=== PATIENT | female | born 1960 | race Caucasian/White ===

== ENCOUNTER 2016-06-02 12:54 | Inpatient (IN) | payer BC ==
[~2016-06-02] VITALS: Ht 170.2 cm; Wt 90.7 kg
[2016-06-02 13:01] VITALS: BP_SYST 120
[2016-06-02] MEDS ORDERED: MAGNESIUM SULFATE 1 GM in NS 100 ML IV ONE (13:15)
[2016-06-02] MEDS ORDERED: ALBUTEROL SULFATE 0.083% 2.5 MG/3 ML VIAL.NEB INH ONE (13:15)
[2016-06-02] MEDS ORDERED: methylPREDNISolone SOD SUCC/PF 62.5 MG/ML VIAL IVP ONE (13:15)
[2016-06-02] MEDS ORDERED: IPRATROPIUM BROM 0.5 MG/2.5 ML VIAL.NEB (ATROVENT) INH ONE (13:15)
[2016-06-02 13:31] LABS: BASOPHILS % (AUTO) 0.4 % (0.0-2.0); EOSINOPHILS # (AUTO) 0.1 K/uL (0.0-0.4); EOSINOPHILS % (AUTO) 1.3 % (0.0-4.0); HEMATOCRIT 41.7 % (36-48); HEMOGLOBIN 14.1 g/dL (12.0-16.0); LYMPHOCYTES # (AUTO) 1.7 K/uL (1.0-5.5); LYMPHOCYTES % (AUTO) 19.7 % (20.5-51.5); MEAN CORPUSCULAR HEMOGLOBIN 30 pg (27-31); MEAN CORPUSCULAR HGB CONC 34 % (32-36); MEAN CORPUSCULAR VOLUME 88 fL (79.0-98.0); MONOCYTES # (AUTO) 0.5 K/uL (0.0-1.0); MONOCYTES % (AUTO) 6.5 % (1.7-9.3); NEUTROPHILS # (AUTO) 6.2 K/uL (1.8-7.7); NEUTROPHILS % (AUTO) 72.1 % (40.0-70.0); PLATELET COUNT (AUTO) 319 K/uL (130-430); RED BLOOD CELL COUNT(AUTO) 4.76 MIL/uL (4.2-6.2); RED CELL DISTRIBUTION WIDTH 14.1 % (9.0-15.0); WHITE BLOOD COUNT (AUTO) 8.5 K/uL (4.8-10.8)
[2016-06-02 13:35] LABS: CALCIUM 9.1 mg/dL (8.4-11.0); CREATININE 1.11 mg/dL (0.55-1.30); POTASSIUM 3.5 mmol/L (3.5-5.1)
[2016-06-02 13:39] LABS: ALBUMIN 3.9 g/dL (3.4-4.8); TOTAL BILIRUBIN 0.4 mg/dL (0.0-1.0)
[2016-06-02] MEDS ORDERED: KETOROLAC TROMETHAMINE 30 MG VIAL IVP ONE (14:15)
[2016-06-02] MEDS ORDERED: PROCHLORPERAZINE EDISYLATE 10 MG/2 ML VIAL IVP ONE (14:15)
[2016-06-02] MEDS ORDERED: IOHEXOL 350 mgI/mL, 150 ML INFUS..BTL IV ONE (15:22)
[2016-06-02] MEDS ORDERED: LISI-600 PO (16:53)
[2016-06-02] MEDS ORDERED: MONT10TA25 PO (17:00)
[2016-06-02] MEDS ORDERED: FLUT1DIS3 INH (17:00)
[2016-06-02] MEDS ORDERED: ASPI81TA2 PO (17:00)
[2016-06-02] MEDS ORDERED: DULO60CA41 PO (17:00)
[2016-06-02] MEDS ORDERED: TEMA30CA5 PO (17:00)
[2016-06-02] MEDS ORDERED: ALBU0.63 NEB (17:00)
[2016-06-02] MEDS ORDERED: ALBMDI INH (17:00)
[2016-06-02] MEDS ORDERED: PANT20TA2 PO (17:00)
[2016-06-02] MEDS ORDERED: HYDR25TA4 PO (17:00)
[2016-06-02] MEDS ORDERED: AZITHROMYCIN 500 MG in NS 250 ML IV ONE (17:30)
[2016-06-02] MEDS ORDERED: AZITHROMYCIN 500 MG/VIAL (ZITHROMAX) IV ONE (17:40)
[2016-06-02] MEDS: PANTOPRAZOLE SODIUM 40 MG TAB PO SCH (17:45)
[2016-06-02] MEDS ORDERED: DEXTROSE 50% JECT 50 ML DISP.SYRIN IVP PRN (17:45)
[2016-06-02] MEDS ORDERED: cefTRIAXone 1 GM in D5W 50 ML IV SCH (17:45)
[2016-06-02] MEDS ORDERED: IPRATROPIUM/ALBUTEROL SULFATE 3 ML AMPUL.NEB INH PRN (17:45)
[2016-06-02] MEDS ORDERED: AZITHROMYCIN 500 MG in NS 250 ML IV SCH (17:45)
[2016-06-02] MEDS ORDERED: MONTELUKAST 10 MG TABLET PO SCH (18:00)
[2016-06-02] MEDS: LR 1,000 ML IV SCH (18:54)
[2016-06-02] MEDS: MONTELUKAST 10 MG TABLET PO SCH (18:54)
[2016-06-02 19:00] VITALS: BP_SYST 106
[2016-06-02 20:00] VITALS: BP_SYST 106
[2016-06-02] MEDS: IPRATROPIUM/ALBUTEROL SULFATE 3 ML AMPUL.NEB INH SCH ×2 (20:37→23:33)
[2016-06-02] MEDS: guaiFENesin ER 600 MG TAB PO SCH (21:13)
[2016-06-02] MEDS: ENOXAPARIN SODIUM 40 MG/0.4 ML SYRINGE SUBCUT SCH (21:14)
[2016-06-02] MEDS: INSULIN REGULAR, HUMAN 100 UNITS/ML, 10 ML VIAL (novoLIN R) SUBCUT PRN (21:18)
[2016-06-02] MEDS: TEMAZEPAM 15 MG CAPSULE PO SCH (21:59)
[2016-06-02 23:19] VITALS: BP_SYST 110
[2016-06-03] VITALS (7 sets, daily range): BP systolic 109–144
[2016-06-03] MEDS ORDERED: PIPERACILLIN/TAZO 3.375/DEX-IS 50 ML IV SCH
[2016-06-03] MEDS: LR 1,000 ML IV SCH (06:15)
[2016-06-03] MEDS: INSULIN REGULAR, HUMAN 100 UNITS/ML, 10 ML VIAL (novoLIN R) SUBCUT PRN ×3 (06:25→20:56)
[2016-06-03 08:22] LABS: CHOLESTEROL 240 mg/dL (<200); HDL CHOLESTEROL 44 mg/dL (>55); LDL CHOLESTEROL 153 mg/dL (<100); TRIGLYCERIDES 277 mg/dL (30-150)
[2016-06-03] MEDS: NICOTINE 21 MG/24 HR PATCH.TD24 TD SCH (09:36)
[2016-06-03] MEDS: ASPIRIN 81 MG TAB.CHEW PO SCH (09:36)
[2016-06-03] MEDS: DULoxetine HCL 30 MG CAPSULE.DR (CYMBALTA) PO SCH (09:36)
[2016-06-03] MEDS: FLUTICASONE/VILANTEROL 1 EACH BLST.W.DEV INH SCH (09:36)
[2016-06-03] MEDS: guaiFENesin ER 600 MG TAB PO SCH ×2 (09:36→20:51)
[2016-06-03] MEDS: LISINOPRIL 20 MG TABLET PO SCH (09:37)
[2016-06-03] MEDS: LEVOFLOXACIN 500 MG TABLET PO SCH (09:37)
[2016-06-03] MEDS: PANTOPRAZOLE SODIUM 40 MG TAB PO SCH (09:37)
[2016-06-03] MEDS: HYDROCHLOROTHIAZIDE 25 MG TABLET (HCTZ) PO SCH (09:37)
[2016-06-03] MEDS: IPRATROPIUM/ALBUTEROL SULFATE 3 ML AMPUL.NEB INH SCH ×5 (11:28→23:22)
[2016-06-03] MEDS: MONTELUKAST 10 MG TABLET PO SCH (17:08)
[2016-06-03] MEDS: DIPHENHYDRAMINE INJ 50 MG/ML VIAL IVP PRN (20:29)
[2016-06-03] MEDS: ENOXAPARIN SODIUM 40 MG/0.4 ML SYRINGE SUBCUT SCH (20:52)
[2016-06-03] MEDS: TEMAZEPAM 15 MG CAPSULE PO SCH (22:12)
[2016-06-04] VITALS: BP_SYST 114
[2016-06-04] MEDS: IPRATROPIUM/ALBUTEROL SULFATE 3 ML AMPUL.NEB INH SCH ×6 (02:35→23:06)
[2016-06-04 04:00] VITALS: BP_SYST 104
[2016-06-04 08:00] VITALS: BP_SYST 128
[2016-06-04] MEDS: ASPIRIN 81 MG TAB.CHEW PO SCH (09:10)
[2016-06-04] MEDS: LEVOFLOXACIN 500 MG TABLET PO SCH (09:10)
[2016-06-04] MEDS: HYDROCHLOROTHIAZIDE 25 MG TABLET (HCTZ) PO SCH (09:11)
[2016-06-04] MEDS: PANTOPRAZOLE SODIUM 40 MG TAB PO SCH (09:11)
[2016-06-04] MEDS: guaiFENesin ER 600 MG TAB PO SCH ×2 (09:11→20:09)
[2016-06-04] MEDS: DULoxetine HCL 30 MG CAPSULE.DR (CYMBALTA) PO SCH (09:11)
[2016-06-04] MEDS: LISINOPRIL 20 MG TABLET PO SCH (09:12)
[2016-06-04] MEDS: FLUTICASONE/VILANTEROL 1 EACH BLST.W.DEV INH SCH (09:12)
[2016-06-04] MEDS: NICOTINE 21 MG/24 HR PATCH.TD24 TD SCH (09:12)
[2016-06-04] MEDS ORDERED: methylPREDNISolone SOD SUCC/PF 62.5 MG/ML VIAL IVP ONE (10:45)
[2016-06-04] MEDS ORDERED: POLYETHYLENE GLYCOL 3350, 17 GM/ POWD.PACK PO ONE (11:00)
[2016-06-04] MEDS: LEVOFLOXACIN 500 MG/D5W 100 ML IV SCH (11:48)
[2016-06-04 12:36] VITALS: BP_SYST 122
[2016-06-04] MEDS: methylPREDNISolone SOD SUCC/PF 62.5 MG/ML VIAL IVP SCH ×2 (14:17→22:45)
[2016-06-04 16:37] VITALS: BP_SYST 141
[2016-06-04] MEDS: MONTELUKAST 10 MG TABLET PO SCH (17:28)
[2016-06-04] MEDS: INSULIN REGULAR, HUMAN 100 UNITS/ML, 10 ML VIAL (novoLIN R) SUBCUT PRN ×2 (17:32→20:12)
[2016-06-04] MEDS: ENOXAPARIN SODIUM 40 MG/0.4 ML SYRINGE SUBCUT SCH (20:08)
[2016-06-04 20:13] VITALS: BP_SYST 132
[2016-06-04] MEDS: TEMAZEPAM 15 MG CAPSULE PO SCH (22:44)
[2016-06-05] VITALS: BP_SYST 136
[2016-06-05] MEDS: IPRATROPIUM/ALBUTEROL SULFATE 3 ML AMPUL.NEB INH SCH ×6 (03:25→23:00)
[2016-06-05 04:00] VITALS: BP_SYST 128
[2016-06-05] MEDS: methylPREDNISolone SOD SUCC/PF 62.5 MG/ML VIAL IVP SCH ×3 (06:20→21:18)
[2016-06-05] MEDS: INSULIN REGULAR, HUMAN 100 UNITS/ML, 10 ML VIAL (novoLIN R) SUBCUT PRN ×4 (06:40→22:21)
[2016-06-05 08:22] VITALS: BP_SYST 134
[2016-06-05] MEDS: ASPIRIN 81 MG TAB.CHEW PO SCH (08:47)
[2016-06-05] MEDS: FLUTICASONE/VILANTEROL 1 EACH BLST.W.DEV INH SCH (08:47)
[2016-06-05] MEDS: HYDROCHLOROTHIAZIDE 25 MG TABLET (HCTZ) PO SCH (08:48)
[2016-06-05] MEDS: guaiFENesin ER 600 MG TAB PO SCH ×2 (08:48→21:16)
[2016-06-05] MEDS: PANTOPRAZOLE SODIUM 40 MG TAB PO SCH (08:48)
[2016-06-05] MEDS: NICOTINE 21 MG/24 HR PATCH.TD24 TD SCH (08:48)
[2016-06-05] MEDS: DULoxetine HCL 30 MG CAPSULE.DR (CYMBALTA) PO SCH (08:48)
[2016-06-05] MEDS: LISINOPRIL 20 MG TABLET PO SCH (08:48)
[2016-06-05] MEDS: POLYETHYLENE GLYCOL 3350, 17 GM/ POWD.PACK PO SCH (08:49)
[2016-06-05 12:00] VITALS: BP_SYST 144
[2016-06-05] MEDS: LEVOFLOXACIN 500 MG/D5W 100 ML IV SCH (12:30)
[2016-06-05 16:00] VITALS: BP_SYST 140
[2016-06-05] MEDS: MONTELUKAST 10 MG TABLET PO SCH (17:11)
[2016-06-05] MEDS ORDERED: MORPHINE 2 MG/ML INJ. SYRINGE IVP PRN (18:00)
[2016-06-05] MEDS: ACETAMINOPHEN 500 MG TABLET PO PRN (18:40)
[2016-06-05] MEDS: DIPHENHYDRAMINE INJ 50 MG/ML VIAL IVP PRN (18:43)
[2016-06-05 19:15] VITALS: BP_SYST 145
[2016-06-05] MEDS: TEMAZEPAM 15 MG CAPSULE PO SCH (21:17)
[2016-06-05] MEDS: ENOXAPARIN SODIUM 40 MG/0.4 ML SYRINGE SUBCUT SCH (21:18)
[2016-06-06] VITALS (7 sets, daily range): BP systolic 124–144
[2016-06-06] MEDS: IPRATROPIUM/ALBUTEROL SULFATE 3 ML AMPUL.NEB INH SCH ×5 (02:54→20:39)
[2016-06-06] MEDS: methylPREDNISolone SOD SUCC/PF 62.5 MG/ML VIAL IVP SCH ×3 (05:47→21:34)
[2016-06-06 06:06] LABS: HEPATITIS A AB, IgM Negative (Negative); HEPATITIS B CORE AB, IgM Negative (Negative); HEPATITIS B SURFACE AG Negative (Negative)
[2016-06-06] MEDS: INSULIN REGULAR, HUMAN 100 UNITS/ML, 10 ML VIAL (novoLIN R) SUBCUT PRN ×4 (06:36→21:46)
[2016-06-06] MEDS ORDERED: metFORMIN HCL 500 MG TABLET PO ONE (09:00)
[2016-06-06] MEDS: LISINOPRIL 20 MG TABLET PO SCH (09:09)
[2016-06-06] MEDS: guaiFENesin ER 600 MG TAB PO SCH ×2 (09:09→21:34)
[2016-06-06] MEDS: HYDROCHLOROTHIAZIDE 25 MG TABLET (HCTZ) PO SCH (09:10)
[2016-06-06] MEDS: DULoxetine HCL 30 MG CAPSULE.DR (CYMBALTA) PO SCH (09:10)
[2016-06-06] MEDS: PANTOPRAZOLE SODIUM 40 MG TAB PO SCH (09:10)
[2016-06-06] MEDS: ASPIRIN 81 MG TAB.CHEW PO SCH (09:10)
[2016-06-06] MEDS: POLYETHYLENE GLYCOL 3350, 17 GM/ POWD.PACK PO SCH (09:10)
[2016-06-06] MEDS: NICOTINE 21 MG/24 HR PATCH.TD24 TD SCH (09:11)
[2016-06-06] MEDS: FLUTICASONE/VILANTEROL 1 EACH BLST.W.DEV INH SCH (09:17)
[2016-06-06] MEDS: LEVOFLOXACIN 500 MG/D5W 100 ML IV SCH (11:12)
[2016-06-06] MEDS: MONTELUKAST 10 MG TABLET PO SCH (17:38)
[2016-06-06] MEDS: metFORMIN HCL 500 MG TABLET PO SCH (17:38)
[2016-06-06] MEDS: TEMAZEPAM 15 MG CAPSULE PO SCH (21:34)
[2016-06-06] MEDS: ENOXAPARIN SODIUM 40 MG/0.4 ML SYRINGE SUBCUT SCH (21:35)
[2016-06-06] MEDS: ACETAMINOPHEN 500 MG TABLET PO PRN (21:48)
[2016-06-07 03:38] VITALS: BP_SYST 133
[2016-06-07] MEDS: IPRATROPIUM/ALBUTEROL SULFATE 3 ML AMPUL.NEB INH SCH ×4 (04:34→11:00)
[2016-06-07] MEDS: methylPREDNISolone SOD SUCC/PF 62.5 MG/ML VIAL IVP SCH (05:47)
[2016-06-07] MEDS: INSULIN REGULAR, HUMAN 100 UNITS/ML, 10 ML VIAL (novoLIN R) SUBCUT PRN ×2 (05:49→11:25)
[2016-06-07 08:00] VITALS: BP_SYST 154
[2016-06-07] MEDS: metFORMIN HCL 500 MG TABLET PO SCH (08:40)
[2016-06-07] MEDS: DULoxetine HCL 30 MG CAPSULE.DR (CYMBALTA) PO SCH (08:40)
[2016-06-07] MEDS: PANTOPRAZOLE SODIUM 40 MG TAB PO SCH (08:40)
[2016-06-07] MEDS: NICOTINE 21 MG/24 HR PATCH.TD24 TD SCH (08:41)
[2016-06-07] MEDS: POLYETHYLENE GLYCOL 3350, 17 GM/ POWD.PACK PO SCH (08:41)
[2016-06-07] MEDS: LISINOPRIL 20 MG TABLET PO SCH (08:41)
[2016-06-07] MEDS: FLUTICASONE/VILANTEROL 1 EACH BLST.W.DEV INH SCH (08:41)
[2016-06-07] MEDS: guaiFENesin ER 600 MG TAB PO SCH (08:41)
[2016-06-07] MEDS: HYDROCHLOROTHIAZIDE 25 MG TABLET (HCTZ) PO SCH (08:41)
[2016-06-07] MEDS: ASPIRIN 81 MG TAB.CHEW PO SCH (08:41)
[2016-06-07] MEDS: LEVOFLOXACIN 500 MG/D5W 100 ML IV SCH (11:14)
[2016-06-07] MEDS ORDERED: TEMA15CA51 PO (11:20)
[2016-06-07] MEDS ORDERED: LEVO500T20 PO (11:20)
[2016-06-07] MEDS ORDERED: METF-510 PO (11:21)
[2016-06-07 12:00] VITALS: BP_SYST 148
[2016-06-07 12:08] VITALS: BP_SYST 148
== END 2016-06-07 13:37 | disposition home or self-care (01) | DRG 190 ==
LOC: SED 12:54 → SMU 16:28
PROVIDERS: ADMIT Internal Medicine; ATTEND Internal Medicine Hospice and Palliative Medicine
DX: J44.0 Chronic obstructive pulmonary disease with (acute) lower respiratory infection (principal); J18.9 Pneumonia, unspecified organism; E87.1 Hypo-osmolality and hyponatremia; J45.901 Unspecified asthma with (acute) exacerbation; J44.1 Chronic obstructive pulmonary disease with (acute) exacerbation; I10 Essential (primary) hypertension; E11.9 Type 2 diabetes mellitus without complications; F32.9 Major depressive disorder, single episode, unspecified; F17.200 Nicotine dependence, unspecified, uncomplicated; Z88.0 Allergy status to penicillin; Z79.899 Other long term (current) drug therapy; Z79.82 Long term (current) use of aspirin; Z85.828 Personal history of other malignant neoplasm of skin; J20.9 Acute bronchitis, unspecified
CPT/HCPCS: 36415; 71010; 71275; 76700-TC; 80053; 80061; 80074; 82962; 83036; 83605; 83880; 84484; 85025; 85379; 87040-TC; 93005; 94640; 94760; 96365; 96375; 99285; J0456; J0780; J1200; J1650; J1815; J1885; J1956; J2930; J3475; J7050; J7120; Q9967